=== PATIENT | male | born 1955 | race Caucasian/White ===

== ENCOUNTER 2017-01-19 07:03 | Inpatient (IN) | payer BC, OTHER ==
[~2017-01-19] VITALS: Ht 177.8 cm; Wt 73.0 kg
[~2017-01-19 07:03] MED LIST: AMLO10TA2 PO; ASPI81TA31 PO; GLUC1CAP30 PO; KRIL1CAP PO; LIGAPLEX PO; LISI10TA5 PO; METO-304 PO; OMEP1CAP2 PO; SIMV10TA6 PO; VITA1CAP PO
--- NOTE | 2017-01-19 11:10 | NUR ---
PREADMISSION NOTE Pt is a 61 y/o male in for ETOH dependency and withdrawal, pt is in stable condition moderately intoxicated, pt drinks 750ml of vodka daily for the past 2 years. Pt denies any seizure history. Pt is A&Ox4 and is able to sign consent, explained unit protocols and procedures pt verbalized understanding. vital signs taken BP:120/75mmHg, Pulse: 75, Temp: 98.1, O2% 96%, RR:18 and denies having any pain. Pt is full code regular diet. will continue the rest of admission process on the unit.
[2017-01-19] MEDS ORDERED: ATOR40TA PO (11:14)
[2017-01-19] MEDS ORDERED: METO100T3 PO (11:14)
[2017-01-19] MEDS ORDERED: AMLO10TA2 PO (11:14)
[2017-01-19] MEDS ORDERED: LOSA50TA21 PO (11:14)
[2017-01-19] MEDS ORDERED: APIX5TAB PO (11:14)
[2017-01-19] MEDS ORDERED: CLOP75TA33 PO (11:14)
[2017-01-19] MEDS ORDERED: OMEG1CAP40 PO (11:14)
[2017-01-19] MEDS ORDERED: LORA1TAB PO (11:14)
[2017-01-19] MEDS ORDERED: HYDROXYZINE PAMOATE 25 MG CAPSULE PO PRN (11:30)
[2017-01-19] MEDS ORDERED: ACETAMINOPHEN 325 MG TABLET PO PRN (11:30)
[2017-01-19] MEDS ORDERED: MIRALAX 17 GM POWD.PACK PO PRN (11:30)
[2017-01-19] MEDS ORDERED: ONDANSETRON 4 MG/2 ML VIAL IM PRN (11:30)
[2017-01-19] MEDS ORDERED: LORAZEPAM 2 MG/1 ML VIAL IM PRN (11:30)
[2017-01-19] MEDS ORDERED: LOPERAMIDE HCL 2 MG CAPSULE PO PRN ×2 (11:30)
[2017-01-19] MEDS ORDERED: LORAZEPAM 1 MG TABLET PO PRN ×2 (11:30)
[2017-01-19] MEDS ORDERED: MAGNESIUM HYDROXIDE 30 ML LIQUID UDC PO PRN (11:30)
[2017-01-19] MEDS ORDERED: THIAMINE HCL 200 MG/2 ML VIAL IM ONE (11:30)
[2017-01-19] MEDS ORDERED: ONDANSETRON ODT 4 MG TAB.RAPDIS SL PRN (11:30)
[2017-01-19] MEDS ORDERED: DICYCLOMINE HCL 20 MG TABLET PO PRN (11:30)
[2017-01-19 12:00] VITALS: BP 128/68
--- NOTE | 2017-01-19 12:00 | NUR ---
ADMISSION NOTE Pt is a 61 year old male, admitted on 01/19/17 at 1120 for ETOH Dependence and medically supervised withdrawals. Pts skin and body check completed, no contraband found, skin is warm dry and intact Pt presented with scar on his sternum s/p stent placement pt also has a healing surgical wound on his left side under the axillary. Pt awake, alert, oriented x 4, gait steady, pt ambulates with a cane. Pt weights 161 pounds and his height is 510. Pt denies any seizure history. Pt escorted to room 303 where the rest of assessment was completed. Pt is primary source of information, consistent, speech coherent. Pt brought home medications which have been reconciled. Pt refused PNA Vaccinations stating that he will receive it somewhere else. Pt reported having a primary care physician by the name of Dr. Yanez and a psychiatrist by the name of Dr. Srinivasan. Pt requested to be full code, Regular diet on fall and seizure precautions, Pt states that he is allergic to a certain Blood pressure medication but can not recall which one, he states that the current BP medications he is taking are all he needs. His last BM was today. Pt states that he lives in a house with his son and his dog. Pt stated that he smokes a pack of cigarettes a day. Pt denies being admitted to a hospital in the past 30 days, Pt is not a candidate for MRSA. Pts initial vital signs are BP: 120/75, Temp: 98.1, Pulse: 75 SPO2: 98% RR:18 and states that he has no pain. Pts initial CIWA was a 2. Pt reports PMH of CAD, DVT 9months ago S/P stent placement 15 months ago, HTN,and HLP. Pts longest sobriety lasted 3days which was about 6 months ago. Pt stated that he does not attend AA meetings. Pt reported no family history of abuse. Pt denies any suicidal or homicidal ideations. Substance use Hx: 1.ETOH Vodka: Pt reported first drinking when he was12 years of age, he has been drinking a fifth of vodka daily for the past 2 years, his last use was today morning he drank a fifth of vodka. Rehab history: None Pt cooperative, appears depressed, reports moderate anxiety. Educated on relaxation techniques (deep breathing) pt verbalized understanding. Pt denies SI/HI at this time, denies hallucinations. Skin warm and moist from sweat, color pink, consistent throughout the body. Eyes PERLLA, tremors noted and felt. Pt denied tingling. All extremities with full ROM. Lung sounds clear bilaterally, no cough present, pt denies SOB. Heart rate regular. Cap refill <3 sec. No edema noted. Abdomen soft, round, bowel sounds active x 4, non tender. Pt denies urinary difficulties, urine was not yet provided. Pt oriented to unit, room, equipment, shown how to use call light, provided returned demonstration. Fall precautions and seizure in place. Side rails up x2, call light within reach, bed locked in low position. MD contacted and aware of patients condition. All admitting orders have been placed, Pt will be on PRN Ativan for today. Pt is placed on a 5 day Ativan taper starting tomorrow. Pt refused his Vitamin B injection. Will continue to monitor.
[2017-01-19 12:30] LABS: BILIRUBIN,TOTAL 0.3 mg/dL (0.2-1.0); CREATININE 1.3 mg/dL (0.6-1.3); MAGNESIUM 1.7 mg/dL (1.8-2.4); POTASSIUM 3.7 mmol/L (3.5-5.1); TOTAL PROTEIN, SERUM 6.4 g/dL (6.4-8.2)
[2017-01-19 12:34] LABS: BASOPHILS % (AUTO) 0.8 % (0.0-2.0); EOSINOPHILS # (AUTO) 0.1 K/uL (0.0-0.7); EOSINOPHILS % (AUTO) 3.3 % (0.0-7.0); HEMATOCRIT 39.3 % (40-50); HEMOGLOBIN 13.4 G/DL (14.0-18.0); LYMPHOCYTES # (AUTO) 1.5 K/UL (0.8-4.8); LYMPHOCYTES % (AUTO) 36.2 % (20.5-51.5); MEAN CORPUSCULAR HEMOGLOBIN 35.7 UUG (27.0-31.0); MEAN CORPUSCULAR HGB CONC 34 g/dL (32.0-37.0); MEAN CORPUSCULAR VOLUME 104.7 FL (82.0-92.0); MONOCYTES # (AUTO) 0.4 K/UL (0.1-1.30); MONOCYTES % (AUTO) 10.4 % (0.0-11.0); NEUTROPHILS # (AUTO) 2.2 K/UL (1.8-8.9); NEUTROPHILS % (AUTO) 49.3 % (38.5-71.5); PLATELET COUNT (AUTO) 232 K/UL (150-450); RED BLOOD CELL COUNT(AUTO) 3.76 MIL/UL (4.7-6.1); WHITE BLOOD COUNT (AUTO) 4.2 K/UL (4.0-11.2)
[2017-01-19] MEDS: GABAPENTIN 300 MG CAPSULE PO SCH ×2 (14:35→21:38)
[2017-01-19 16:00] VITALS: BP 130/86
--- NOTE | 2017-01-19 16:40 | NUR ---
PRN MEDICATION Pt c/o anxiety presented with tremors, sweats and agitation upon assessment pt had a CIWA score of 16, Pt requested something for relief, per MD order pt received PRN ativan 2mg PO, all needs met will continue to monitor.
[2017-01-19] MEDS: MAG HYDROX/AL HYDROX/SIMETH 30 ML LIQUID UDC PO PRN (16:49)
--- NOTE | 2017-01-19 17:45 | NUR ---
PRN Reassessment Pt reported a decrease in anxiety was no longer agitated and verbalized " I feel much better now thank you" upon reassessment pts CIWA dropped to 10, all needs met will continue to monitor
--- NOTE | 2017-01-19 19:00 | NUR ---
End Of Shift Pt is a 61 y/o male in for ETOH dependency and withdrawal, pt is in stable condition. Pt drinks 750ml of vodka daily for the past 2 years. Pt denies any seizure history. Pt is A&Ox4 , Pt is full code regular diet, reports being allergic to a BP medication but does not remember the name. VS monitored closely q 4 hours. Withdrawal symptoms were closely monitored. Initial CIWA 2 at 1600 pts CIWA increased to 16 pt received PRN Ativan 2mg PO per MD order. Patient encouraged adequate PO fluid intake as tolerated. Patient presented with tremors and anxiety during the day. Upon reassessment pts Last CIWA was a 10. Per patient, Ativan has been helping him with his withdrawal symptoms. Pts taper begins tomorrow. Pt ate all of his meals. Patient encouraged to attend group therapies/sessions to learn new coping skills to recent relapse, patient denies SI/HI. Participated in group and therapy sessions. All needs met and attended
--- NOTE | 2017-01-19 19:05 | NUR ---
Start of shift note Received report from day shift nurse. Pt is a 61 yo male, A+Ox4, presenting to [facility] for ETOH dependence. Pt has Allergies to Lobster and an "unknown blood pressure medication", is on Full code status, and on Regular diet. Pt is on Fall and Seizure precautions. Pt has HX of CAD, DVT, S/P stent replacement, Hyperlipidemia, and HTN. Pt is on 5 day Ativan taper to start tomorrow. No s/s of distress noted at this time. Respirations even and unlabored. Will continue to monitor.
[2017-01-19 20:12] VITALS: BP 171/92
[2017-01-19] MEDS ORDERED: APIXABAN 5 MG TABLET PO SCH (20:45)
[2017-01-19 21:06] LABS: *AMPHETAMINE, URINE NEGATIVE (NEGATIVE); *BARBITURATE, URINE NEGATIVE (NEGATIVE); *CANNABINOID, URINE NEGATIVE (NEGATIVE); *COCCAINE, URINE NEGATIVE (NEGATIVE); *OPIATE, URINE NEGATIVE (NEGATIVE); *PHENCYCLIDINE SCREEN,URINE NEGATIVE (NEGATIVE)
[2017-01-19] MEDS: AMLODIPINE 10 MG TABLET PO SCH (21:38)
[2017-01-19] MEDS: LISINOPRIL 10 MG TABLET PO SCH (21:38)
[2017-01-19] MEDS: APIXABAN 5 MG PO SCH (22:27)
[2017-01-19] MEDS: diphenhydrAMINE 50 MG CAPSULE PO PRN (22:32)
--- NOTE | 2017-01-19 22:32 | NUR ---
PRN Ativan 1mg and Benadryl Pt c/o inability to sleep and noted with CIWA: 6. PRN Ativan 1 mg and Benadryl given and tolerated well. Will reassess within 1HR. Will continue to monitor.
--- NOTE | 2017-01-19 23:30 | NUR ---
PRN Ativan 1mg and Benadryl Medications effective. Pt is resting well in bed. No s/s of ASE/distress noted at this time. Respirations even and unlabored. Will continue to monitor. Reassessment Addendum: 01/20/17 at 0449 by COLE GARCIA LVN PRN Ativan 1mg Benadryl Reassessment
[2017-01-20 00:12] VITALS: BP 146/75
[2017-01-20 04:54] VITALS: BP 170/94
[2017-01-20] MEDS: CLONIDINE HCL 0.1 MG TABLET PO PRN (04:59)
--- NOTE | 2017-01-20 05:02 | NUR ---
PRN Clonidine Pt noted with b/p 170/94. PRN Clonidine given and tolerated well. Will reassess within 1 HR. Will continue to monitor.
--- NOTE | 2017-01-20 06:00 | NUR ---
PRN Clonidine Reassessment Medication effective. Pt noted with b/p 145/91. No s/s of ASE/distress noted at this time. Respirations even and unlabored. Will continue to monitor.
--- NOTE | 2017-01-20 06:36 | NUR ---
End of shift note Pt is a 61 yo male, A+Ox4, presenting to [facility] for ETOH dependence. Pt has Allergies to Lobster and an "unknown blood pressure medication", is on Full code status, and on Regular diet. Pt is on Fall and Seizure precautions. Pt has HX of CAD, DVT, S/P stent replacement, Hyperlipidemia, and HTN. Pt is on 5 day Ativan taper to start today. Pt was given PRN Ativan 1mg and Benadryl @2232 and PRN Clonidine @0502. Pt slept for a total of 7 HRS. Last CIWA: 4 @0400. No s/s of distress noted at this time. Respirations even and unlabored. Will endorse to day shift nurse.
--- NOTE | 2017-01-20 08:01 | NUR ---
BEGINNING OF SHIFT Patient endorsement report received from rn shift mgr nurse, all pertinent information discussed. patient is a 61 year old male admitted on: 01/19/2017, patient with admitting Dx: etoh dependence. Patient Scheduled to begin a 5 day ativan taper as ordered, and is scheduled to begin day 1 of taper, will monitor closely. During rn shift mgr patient received PRN: Ativan, and benadryl. last ciwa score of: 4. patient slept for 7 hours. Received patient in room. Alert and oriented x 4. On fall and seizure precautions. Educated patient on the current plan of care for the day and medication regimen. Safety measures in place. call light kept with in reach, will continue to monitor closely.
[2017-01-20 08:17] VITALS: BP 154/90
[2017-01-20 08:20] LABS: HEPATITIS B SURFACE AG Negative (Negative)
[2017-01-20] MEDS ORDERED: 5 DAY TAPER OF LORAZEPAM -SERENITY PROTOCOL PO PRN (09:00)
[2017-01-20] MEDS ORDERED: TUBERCULIN,PURIF.PROT.DERIV. 5 TU/0.1 ML TEST ID ONE (09:00)
[2017-01-20] MEDS: APIXABAN 5 MG PO SCH ×2 (09:28→17:04)
[2017-01-20] MEDS: METOPROLOL TARTRATE 100 MG TABLET PO SCH ×2 (09:28→17:08)
[2017-01-20] MEDS: LORAZEPAM 1 MG TABLET PO SCH ×4 (09:29→20:35)
[2017-01-20] MEDS: FOLIC ACID 1 MG TABLET PO SCH (09:29)
[2017-01-20] MEDS: MULTIVITAMINS,THERAPEUTIC TABLET PO SCH (09:29)
[2017-01-20] MEDS: GABAPENTIN 300 MG CAPSULE PO SCH ×3 (09:29→20:35)
[2017-01-20] MEDS: DOCUSATE SODIUM 250 MG CAPSULE PO SCH (09:30)
[2017-01-20] MEDS: THIAMINE HCL 100 MG TABLET PO SCH (09:30)
[2017-01-20] MEDS: AMLODIPINE 10 MG TABLET PO SCH (09:30)
[2017-01-20] MEDS: LISINOPRIL 10 MG TABLET PO SCH (09:30)
[2017-01-20] MEDS: CLOPIDOGREL 75 MG TABLET PO SCH (10:14)
[2017-01-20 12:24] VITALS: BP 132/79
[2017-01-20] MEDS ORDERED: MAGNESIUM OXIDE 400 MG TABLET PO ONE (13:00)
[2017-01-20] MEDS: IBUPROFEN 400 MG TABLET PO PRN (13:59)
--- NOTE | 2017-01-20 13:59 | NUR ---
PRN MOTRIN Patient c/o pain 07/26, provided patient with non pharmacological interventions with no relief, administered Motrin as ordered, will monitor effectiveness of medication.
--- NOTE | 2017-01-20 14:59 | NUR ---
MOTRIN REASSESSMENT Patient reports medication effective, current pain level is 0/10, will continue to monitor.
[2017-01-20 17:00] VITALS: BP 131/72
[2017-01-20] MEDS: ATORVASTATIN 40 MG TABLET PO SCH (17:05)
--- NOTE | 2017-01-20 18:55 | NUR ---
END OF SHIFT Patient alert and oriented x4, compliant with therapeutic plan of care. Patient with admitting Dx: etoh dependence. Patient continues on 5 day Ativan taper as ordered, well tolerated, patient currently on day 1 of taper, well tolerated, no ASE noted. 0900 assessment patient presented with: tremors that can be felt but not seen, barely sweating, moderate anxiety, mild pins and needles sensation in hands, and mild head fullness with ciwa score of: 10; 1300 assessment patient presented with: tremors that can be felt but not seen, barely sweating, moderate anxiety, mild pins and needles sensation in hands, with ciwa score of: 8; 1700 patient presented with: tremors that can be felt but not seen, barely sweating, moderate anxiety, mild pins and needles sensation in hands, with ciwa score of: 8. Patient encouraged adequate PO fluid intake as tolerated. Encouraged to attend group therapies/sessions to learn new coping skills to prevent relapse, preferred to stay in room, per patient would like to rest, denies any SI/HI. Patient Patients Respirations even and unlabored. No SOB noted, lungs are clear upon auscultation. Skin warm and dry to touch. Abdomen soft and non-distended with (+) BS in all 4 quadrants. No complains of N/V/D or constipation noted. Bladder non-distended. Voids independently. Safety measures in place. Call light kept with in reach. All needs met and rendered. Patient endorsed to criminal justice social worker nurse, all pertinent information discussed.
[2017-01-20 20:00] VITALS: BP 138/93
--- NOTE | 2017-01-20 20:00 | NUR ---
End of Shift Pt is a 61 year old male admitted for ETOH dependence, placed on 5 day Ativan taper. Pt reports consuming 5th of Vodka/daily. PMH: CAD, DVT, S/P Stent placement 15 months ago, HTN and HLP. Pt reports allergies to lobster and a BP medication he cannot recall as stated by him. Fall/seizure precautions (no hx of seizures), regular diet and full code. Upon assessment, pt presents with irritation/anxiety, reports feeling chills, hot/cold, skin clammy/flushed, tremors felt upon touch, respirations even/unlabored, denies SOB/chest pain, denies n/v/d, medications due. Safety measures in place, call light within reach, side rails up x2, bed locked and in low position. Will continue to monitor. Addendum: 01/20/17 at 2302 by MARÍA ELENA DALTON RN START OF SHIFT
[2017-01-21] VITALS: BP 137/89
--- NOTE | 2017-01-21 | NUR ---
ARSENI[place]A deferred d/t pt sleeping, to assess while pt is awake as ordered. BP 137/89, pulse 74, resp 18, SpO2 96% room air, temp 97.9, no pain 0/[address], will continue to monitor.
[2017-01-21 04:00] VITALS: BP 142/75
--- NOTE | 2017-01-21 04:00 | NUR ---
ARSENI[place]A deferred d/t pt sleeping, to assess while pt is awake as ordered. BP 142/75, pulse 69, resp 17, SpO2 96% room air, temp 98.1, no pain 0/[address], will continue to monitor.
[2017-01-21] MEDS: IBUPROFEN 400 MG TABLET PO PRN (06:44)
--- NOTE | 2017-01-21 06:44 | NUR ---
Pt reports headache, rate 5/10. Motrin 400mg PRN administered. will endorsed onto day shift nurse to monitor effectiveness.
--- NOTE | 2017-01-21 07:00 | NUR ---
End of Shift Pt is a 61 year old male admitted for ETOH dependence, placed on 5 day Ativan taper. Pt reports consuming 5th of Vodka/daily. PMH: CAD, DVT, S/P Stent placement 15 months ago, HTN and HLP. Pt reports allergies to lobster and a BP medication he cannot recall as stated by him. Fall/seizure precautions (no hx of seizures), regular diet and full code. During shift, pt presented with irritation/anxiety, reports feeling chills, hot/cold, skin clammy/flushed, tremors felt upon touch scheduled taper medications administered, CIWA 9. Motrin 400mg PRN administered. Pt slept for 11 hours, intake of 200 ml PO, voids x1 and stool x0. Safety measures in place, call light within reach, side rails up x2, bed locked and in low position. Endorsed to day shift nurse.
--- NOTE | 2017-01-21 07:35 | NUR ---
BEGINNING OF SHIFT Patient endorsement report received from overnight houseperson nurse, all pertinent information discussed. patient is a 61 year old male admitted on: 01/19/2017, patient with admitting Dx: etoh dependence. Patient continues on 5 day ativan taper as ordered, and is scheduled to begin day 2 of taper, will monitor closely. During overnight houseperson patient received PRN: Motrin. last ciwa score of: 9. patient slept for 11hours. Received patient in room. Alert and oriented x 4. On fall and seizure precautions. Educated patient on the current plan of care for the day and medication regimen. Safety measures in place. call light kept with in reach, will continue to monitor closely.
[2017-01-21 07:42] LABS: CREATININE 1.4 mg/dL (0.6-1.3); MAGNESIUM 1.9 mg/dL (1.8-2.4); POTASSIUM 4.5 mmol/L (3.5-5.1)
[2017-01-21 08:52] VITALS: BP 158/98
[2017-01-21] MEDS: APIXABAN 5 MG PO SCH ×2 (08:54→17:17)
[2017-01-21] MEDS: AMLODIPINE 10 MG TABLET PO SCH (08:54)
[2017-01-21] MEDS: METOPROLOL TARTRATE 100 MG TABLET PO SCH ×2 (08:55→17:16)
[2017-01-21] MEDS: THIAMINE HCL 100 MG TABLET PO SCH (08:55)
[2017-01-21] MEDS: CLOPIDOGREL 75 MG TABLET PO SCH (08:55)
[2017-01-21] MEDS: LISINOPRIL 10 MG TABLET PO SCH (08:56)
[2017-01-21] MEDS: LORAZEPAM 1 MG TABLET PO SCH ×3 (08:56→20:26)
[2017-01-21] MEDS: FOLIC ACID 1 MG TABLET PO SCH (08:56)
[2017-01-21] MEDS: DOCUSATE SODIUM 250 MG CAPSULE PO SCH (08:56)
[2017-01-21] MEDS: MULTIVITAMINS,THERAPEUTIC TABLET PO SCH (08:56)
[2017-01-21] MEDS: GABAPENTIN 300 MG CAPSULE PO SCH ×3 (08:56→20:26)
[2017-01-21] MEDS: CLONIDINE HCL 0.1 MG TABLET PO PRN (11:13)
--- NOTE | 2017-01-21 11:13 | NUR ---
PRN VISTARIL/CLONIDINE Patient c/o feeling increase in anxiety and agitation, per patient verbalized "i feel like i am being to get angry, last time i was angry i was punching things and i was tied down" patient encouraged to express feelings. Provided patient with non pharmacological interventions and calming reassurance with no relief. Patient was administered Vistaril and clonidine as ordered, bp: 150/96 hr: 77. will monitor effectiveness of medication.
--- NOTE | 2017-01-21 12:13 | NUR ---
VISTARIL/CLONIDINE REASSESSMENT Patient reports medication effective, feels less anxious and less agitated. bp: 152/89 heart rate: 68, patient encouraged to attend group therapies/sessions to learn new coping skills to prevent relapse. will continue to monitor.
[2017-01-21 13:07] VITALS: BP 152/89
[2017-01-21] MEDS ORDERED: LORAZEPAM 1 MG TABLET PO PRN ×2 (13:30)
[2017-01-21 17:07] VITALS: BP 151/87
[2017-01-21] MEDS: ATORVASTATIN 40 MG TABLET PO SCH (17:17)
--- NOTE | 2017-01-21 17:37 | NUR ---
MD COMMUNICATION Patient was noted ambulating and noted with unsteady gait, patient at high risk for fall and self injury d/t unsteady gait. notified with MD patient to be placed on 1: 1 sitter for safety precautions, will continue to monitor.
--- NOTE | 2017-01-21 18:07 | NUR ---
Therapist prompted client to attend group today, client agreed to attend.
--- NOTE | 2017-01-21 19:00 | NUR ---
END OF SHIFT Patient alert and oriented x4, compliant with therapeutic plan of care. Patient with admitting Dx: etoh dependence. Patient continues on 5 day Ativan taper as ordered, well tolerated, patient currently on day 2 of taper, well tolerated, no ASE noted. 0900 assessment patient presented with: fine tremors, barely sweating, moderate anxiety, mild auditory and visual hallucinations with ciwa score of: 12, per patient reports seeing and speaking with brother early in the morning. 1300 assessment patient presented with: fine tremors, barely sweating, and anxiety with ciwa score of: 6; 1700 assessment patient presented with: fine tremors, barely sweating and anxiety with ciwa score of: 6. During shift patient was placed on a 1: 1 sitter for safety precautions, patient noted with unsteady gait. Patient currently denies any auditory and visual hallucinations, but patient reported that in the past he hears and sees his brother, patient was seen by psychiatrist during shift. Patient encouraged adequate PO fluid intake as tolerated. Encouraged to attend group therapies/sessions to learn new coping skills to prevent relapse, denies any SI/HI. Patient received PRN: Vistaril and clonidine during shift. Patient Patients Respirations even and unlabored. No SOB noted, lungs are clear upon auscultation. Skin warm and dry to touch. Abdomen soft and non-distended with (+) BS in all 4 quadrants. No complains of N/V/D or constipation noted. Bladder non-distended. Voids independently. Safety measures in place. Call light kept with in reach. All needs met and rendered. Patient endorsed to rn night nurse, all pertinent information discussed.
[2017-01-21 20:00] VITALS: BP 139/94
--- NOTE | 2017-01-21 20:00 | NUR ---
Start of Shift Pt is a 61 year old male admitted for ETOH dependence, placed on 5 day Ativan taper. Pt reports consuming 5th of Vodka/daily. PMH: CAD, DVT, S/P Stent placement 15 months ago, HTN and HLP. Pt reports allergies to lobster and a BP medication he cannot recall as stated by him. Fall/seizure precautions (no hx of seizures), regular diet and full code. Upon assessment, pt presents with anxiety, reports hot/cold, skin clammy/flushed, tremors felt upon touch, reports pins/needles sensations, respirations even/unlabored, denies SOB/chest pain, denies n/v/d, medications due. Pt is a on a 1:1 for safety. Pt denies visual/auditory hallucinations at time of assessment. Safety measures in place, call light within reach, side rails up x2, bed locked and in low position. Will continue to monitor.
[2017-01-22] VITALS: BP 139/80
--- NOTE | 2017-01-22 | NUR ---
ARSENIOWA deferred d/t pt sleeping, to assess while pt is awake as ordered. BP 139/80, pulse 79, resp 17, Spo2 96% room air, temp 98.[address], will continue to monitor.
[2017-01-22 04:00] VITALS: BP 142/90
--- NOTE | 2017-01-22 04:00 | NUR ---
CIWA deferred d/t pt sleeping, to assess while pt is awake as ordered. BP 140/90, pulse 80, resp 16, Spo2 96% room air, temp 98.[address], will continue to monitor.
[2017-01-22] MEDS: IBUPROFEN 400 MG TABLET PO PRN ×2 (05:41→18:09)
--- NOTE | 2017-01-22 05:41 | NUR ---
PRN Administration Pt reports, "I hear my brothers voice. He's just talking to me. Earlier I saw a dog". Pt also reports a headache, rated 4/10. Motrin 400mg PRN and Seroquel 25mg PRN administered for hallucinations as ordered. Safety measures in place, will continue to monitor.
[2017-01-22] MEDS: QUETIAPINE FUMARATE 25 MG TABLET PO PRN ×2 (05:52→20:55)
--- NOTE | 2017-01-22 06:41 | NUR ---
PRN Reassessment At time of reassessment pt denies auditory/visual hallucinations. Denies headache. Sitter at bed side, safety measures in place, will continue to monitor.
--- NOTE | 2017-01-22 07:00 | NUR ---
End of Shift Pt is a 61 year old male admitted for ETOH dependence, placed on 5 day Ativan taper. Pt reports consuming 5th of Vodka/daily. PMH: CAD, DVT, S/P Stent placement 15 months ago, HTN and HLP. Pt reports allergies to lobster and a BP medication he cannot recall as stated by him. Fall/seizure precautions (no hx of seizures), regular diet and full code. During shift, pt presented with anxiety, reported hot/cold, skin clammy/flushed, tremors felt upon touch, reported pins/needles sensations scheduled taper medications administered, CIWA 10. Motrin 400mg PRN given for ROBLEDO. Pt verbalized hallucinations during shift and stated that he heard his brothers voice and saw a dog - Seroquel 25mg PRN administered for hallucinations as ordered. Pt is a on a 1:1 for safety. Pt denied visual/auditory hallucinations during shift. Pt slept for 8 hours, intake of 500 ml PO, voids x2 and stool x0. Safety measures in place, call light within reach, side rails up x2, bed locked and in low position. Endorsed to day shift nurse.
--- NOTE | 2017-01-22 07:00 | NUR ---
Start of Shift Report from the night nurse: Pt is a 61 y/o male, ambulatory with cane and here for Etoh dependence r/t 750mL Vodka daily for 2 years; 5 day Ativan taper ordered. Pt is a full code, Regular diet, unknown allergy rxn to anti-HTN medications and allergic to lobster. Hhx: DVT, HTN, HLD, CAD & Surgical Sent placement 2014 with core measures carried out as ordered. No SCD ordered with Eliquis given as ordered. No Hx of sz or fall. Seizure and fall precautions ordered. Pt has sitter with 1:1 order r/t disorientation and hallucinations with additional orders for Seroquel 25mg PRN given last night. V/S stable and no PRN BP medication given. No abnormal labs or new orders endorsed to me. Pt is asleep in room. Will cont. to monitor the pt. Addendum: 01/22/17 at 1914 by MO OBREGON RN Last ARSENIOOK 10
[2017-01-22 08:00] VITALS: BP 162/94
[2017-01-22] MEDS: APIXABAN 5 MG PO SCH ×2 (09:55→16:52)
[2017-01-22] MEDS: LORAZEPAM 1 MG TABLET PO SCH ×4 (09:56→20:48)
[2017-01-22] MEDS: MULTIVITAMINS,THERAPEUTIC TABLET PO SCH (09:56)
[2017-01-22] MEDS: LISINOPRIL 10 MG TABLET PO SCH (09:56)
[2017-01-22] MEDS: GABAPENTIN 300 MG CAPSULE PO SCH ×3 (09:56→20:49)
[2017-01-22] MEDS: AMLODIPINE 10 MG TABLET PO SCH (09:56)
[2017-01-22] MEDS: FOLIC ACID 1 MG TABLET PO SCH (09:56)
[2017-01-22] MEDS: THIAMINE HCL 100 MG TABLET PO SCH (09:56)
[2017-01-22 12:00] VITALS: BP 152/82
[2017-01-22] MEDS: CLOPIDOGREL 75 MG TABLET PO SCH (12:20)
[2017-01-22] MEDS: METOPROLOL TARTRATE 100 MG TABLET PO SCH ×2 (12:24→16:52)
[2017-01-22] MEDS ORDERED: hydrALAZINE HCL 25 MG TABLET PO SCH (13:15)
[2017-01-22] MEDS: LOSARTAN POTASSIUM 50 MG TABLET PO SCH ×2 (14:54→16:51)
[2017-01-22 16:00] VITALS: BP 172/93
[2017-01-22] MEDS: ATORVASTATIN 40 MG TABLET PO SCH (16:51)
--- NOTE | 2017-01-22 17:00 | NUR ---
PRN Medication Administration & Elevated BP Pt is resting in bed with HOB 45 degrees, BP 172/93 HR 93 SpO2 93% RA & pt c/o ROBLEDO 4/10 pain; Scheduled Losartan, Lopressor, Eliquis, Lipitor and Ativan given as ordered with PRN Tylenol 650mg. Will reassess BP and ROBLEDO in 1 hour after pt returns from dinner.
--- NOTE | 2017-01-22 18:05 | NUR ---
Reassessment & PRN Medication Administration Pt is in room resting in bed after dinner with HOB 45 degrees. BP has decreased from 172/93 to 164/94, HR is again stable at 76 & ROBLEDO is not relieved with pain 05/26; Tylenol is not effective PRN hydralazine 25mg tab PO and Motrin 400mg PO given as ordered. Will endorse to the night nurse to reassess in 1H.
[2017-01-22] MEDS: hydrALAZINE HCL 25 MG TABLET PO PRN (18:09)
--- NOTE | 2017-01-22 18:29 | NUR ---
End of Shift Report from the night nurse: Pt is a 61 y/o male, ambulatory with cane and here for Etoh dependence r/t 750mL Vodka daily for 2 years; 5 day Ativan taper ordered. Pt is a full code, Regular diet, unknown allergy rxn to anti-HTN medications and allergic to lobster. Hhx: DVT, HTN, HLD, CAD & Surgical Sent placement 2014 with core measures carried out as ordered. No SCD ordered with Eliquis given as ordered. No Hx of sz or fall. Seizure and fall precautions ordered. Pt has sitter with 1:1 order r/t unsteady gait. New order for Losartan BID and PRN hydralazine with parameters with one dose given as ordered since 1700 SBP elevated 172 and decreased after second dose of losartan and Lopressor given as scheduled but was not effective after one hour [place] [address]. PRN Tylenol 650mg given at 1700 since pt c/o ROBLEDO with elevated BP and was ineffective after 1H so the PRN Motrin 400mg given at 1805pm. New order for BMP tomorrow. Pt denies chest pain and no N/V noted during my shift. Pt voided x 4 effectively with 2.4L fluid intake & BM x1 during my shift. Last CIWA 6. Addendum: 01/22/17 at 1915 by MO OBREGON RN Pt attended group therapy and activities during my shift.
[2017-01-22 20:00] VITALS: BP 144/83
--- NOTE | 2017-01-22 20:00 | NUR ---
Start of Shift Pt is a 61 year old male admitted for ETOH dependence, placed on 5 day Ativan taper. Pt reports consuming 5th of Vodka/daily. PMH: CAD, DVT, S/P Stent placement 15 months ago, HTN and HLP. Pt reports allergies to lobster and a BP medication he cannot recall as stated by him. Fall/seizure precautions (no hx of seizures), regular diet and full code. Upon assessment, pt presents with anxiety, skin is flushed, reports chills with hot/cold sensations, respirations even/unlabored, denies SOB/chest pain, denies n/v/d, medications due. Pt is a on a 1:1 for safety. Safety measures in place, call light within reach, side rails up x2, bed locked and in low position. Will continue to monitor.
--- NOTE | 2017-01-22 20:55 | NUR ---
PRN Administration Pt verbalizes auditory hallucinations. Pt states, I hear my mom and sister talking to each other, but not with me. Seroquel 25mg PRN administered. Safety measures in place, will continue to monitor.
--- NOTE | 2017-01-22 21:55 | NUR ---
PRN Reassessment Upon reassessment, pt is sleeping, respirations even/unlabored. Sitter at bedside, safety measures in place, will continue to monitor.
[2017-01-23] VITALS (8 sets, daily range): BP systolic 141–166; BP diastolic 74–90
[2017-01-23] MEDS: hydrALAZINE HCL 25 MG TABLET PO PRN (04:30)
--- NOTE | 2017-01-23 04:30 | NUR ---
PRN Administration BP 166/90, pulse 78, resp 16, SpO2 95% room air, temp 98.1 Hydralazine 25mg PRN administered. Safety measures in place, will continue to monitor.
--- NOTE | 2017-01-23 05:30 | NUR ---
PRN Reassessment/Administration Upon reassessment, BP 162/88, pulse 64. Clonidine 0.1mg PRN administered. Safety measures in place, will continue to monitor.
[2017-01-23] MEDS: CLONIDINE HCL 0.1 MG TABLET PO PRN (05:41)
--- NOTE | 2017-01-23 06:30 | NUR ---
PRN Reassessment Medication effective. BP 142/74 & pulse 59 Pt resting in bed, safety measures in place, will continue to monitor.
--- NOTE | 2017-01-23 07:07 | NUR ---
End of Shift Pt is a 61 year old male admitted for ETOH dependence, placed on 5 day Ativan taper. Pt reports consuming 5th of Vodka/daily. PMH: CAD, DVT, S/P Stent placement 15 months ago, HTN and HLP. Pt reports allergies to lobster and a BP medication he cannot recall as stated by him. Fall/seizure precautions (no hx of seizures), regular diet and full code. During shift, pt presented with anxiety, skin is flushed, reports chills with hot/cold sensations scheduled taper medications administered, CIWA 5. During shift, Pt verbalized auditory hallucinations. Pt stated, I hear my mom and sister talking to each other, but not with me. Seroquel 25mg PRN administered. Hydralazine 25mg PRN and Clonidine 0.1mg PRN administered for elevated BP. Latest BP 142/74 & pulse 59. Pt slept for 8 hours, intake of 1000 ml PO, voids x4, and stool x0. Pt continues on a 1:1 for safety. Safety measures in place, call light within reach, side rails up x2, bed locked and in low position. Endorsed to day shift nurse.
[2017-01-23 07:42] LABS: CREATININE 1.4 mg/dL (0.6-1.3); POTASSIUM 4.4 mmol/L (3.5-5.1)
--- NOTE | 2017-01-23 08:00 | NUR ---
received patient awake and alert in bed with 1;1 sitter in room no c/o seizure activity , oral intake qs, pt voiding qs no shakea noted and vitals wnl on 5 day ativan taper. continue to monitor for safety and falls.
[2017-01-23] MEDS: MULTIVITAMINS,THERAPEUTIC TABLET PO SCH (08:21)
[2017-01-23] MEDS: FOLIC ACID 1 MG TABLET PO SCH (08:21)
[2017-01-23] MEDS: LORAZEPAM 1 MG TABLET PO SCH ×2 (08:21→14:54)
[2017-01-23] MEDS: CLOPIDOGREL 75 MG TABLET PO SCH (08:21)
[2017-01-23] MEDS: GABAPENTIN 300 MG CAPSULE PO SCH ×4 (08:21→22:17)
[2017-01-23] MEDS: LOSARTAN POTASSIUM 50 MG TABLET PO SCH ×2 (08:22→17:21)
[2017-01-23] MEDS: THIAMINE HCL 100 MG TABLET PO SCH (08:22)
[2017-01-23] MEDS: AMLODIPINE 10 MG TABLET PO SCH (08:24)
[2017-01-23] MEDS: METOPROLOL TARTRATE 100 MG TABLET PO SCH ×2 (09:21→17:23)
[2017-01-23] MEDS: APIXABAN 5 MG PO SCH ×2 (09:25→17:23)
--- NOTE | 2017-01-23 12:12 | NUR ---
Therapist prompted client to come to group today. CLient agreed
[2017-01-23] MEDS: MAG HYDROX/AL HYDROX/SIMETH 30 ML LIQUID UDC PO PRN (13:49)
[2017-01-23] MEDS ORDERED: LORAZEPAM 1 MG TABLET PO SCH ×2 (15:00→21:00)
[2017-01-23] MEDS: ATORVASTATIN 40 MG TABLET PO SCH (17:27)
--- NOTE | 2017-01-23 17:42 | NUR ---
patient remains on 1;1 for safety ambulates with cane , no etoh withdrawls noted , oral intake qs and voiding qs b/p wnl wioth taking anti hypertension
--- NOTE | 2017-01-23 19:10 | NUR ---
Start of shift note Received report from day shift nurse. Pt is a 61 yo male, A+Ox4, presenting to [facility] for ETOH dependence. Pt has Allergies to Lobster and an "unknown blood pressure medication", is on Full code status, and on Regular diet. Pt is on Fall and Seizure precautions. Pt has HX of CAD, DVT, S/P stent replacement, Hyperlipidemia, and HTN. Pt is on 1:1 observation for unsteady gait. Pt is on 5 day Ativan taper to start tomorrow. No s/s of distress noted at this time. Respirations even and unlabored. Will continue to monitor. Addendum: 01/24/17 at 0636 by COLE GARCIA LVN Pt is on 5 day Ativan taper, tolerated well.
[2017-01-23] MEDS ORDERED: hydrALAZINE HCL 25 MG TABLET PO PRN (19:15)
[2017-01-23] MEDS ORDERED: DILTIAZEM HCL SR 60 MG CAP.SR.12H PO SCH (21:00)
[2017-01-23] MEDS: diphenhydrAMINE 50 MG CAPSULE PO PRN (22:17)
--- NOTE | 2017-01-23 22:17 | NUR ---
PRN Benadryl Pt c/o inability to sleep and requested for PRN Benadryl. Medication given and tolerated well. Will reassess within 1 HR. Will continue to monitor.
--- NOTE | 2017-01-23 23:15 | NUR ---
PRN Benadryl Reassessment Medication effective. Pt is resting well in bed. No s/s of ASE/distress noted at this time. Respirations even and unlabored. Will continue to monitor.
[2017-01-24 00:08] VITALS: BP 131/82
[2017-01-24 04:50] VITALS: BP 138/88
--- NOTE | 2017-01-24 06:52 | NUR ---
End of shift note Pt is a 61 yo male, A+Ox4, presenting to [facility] for ETOH dependence. Pt has Allergies to Lobster and an "unknown blood pressure medication", is on Full code status, and on Regular diet. Pt is on Fall and Seizure precautions. Pt has HX of CAD, DVT, S/P stent replacement, Hyperlipidemia, and HTN. Pt is on 1:1 observation for unsteady gait. Pt is on 5 day Ativan taper, tolerated well. Pt was given PRN Benadryl @2217. Pt slept for a total of 8 HRS. Last CIWA: 2 @0400. No s/s of distress noted at this time. Respirations even and unlabored. Will endorse to day shift nurse.
--- NOTE | 2017-01-24 07:35 | NUR ---
START OF SHIFT Received report from human services case manager nurse. Pt is lying in bed watching TV. 1:[address] for safety r/t unsteady gait. He is a 61 yo male admitted to [facility] on 01/19 for ETOH dependence. He is A&O x4 and ambulatory with a cane r/t right leg weakness. Allergic to lobster, full code status, and on a regular diet. PMH of HTN, CAD, DVT of right leg, and s/p stent placement. On admission he reported using vodka 1/5th gallon per day. 5 day Ativan taper started 01/20. He reports anxiety and left leg weakness. Fall and seizure precautions in place. Bed is down with call light in reach. Addendum: 01/24/17 at 0933 by NILESH ENRIQUE RN Correction: Pt ambulates with a cane r/t left leg weakness. Addendum: 01/24/17 at 1215 by NILESH ENRIQUE RN Pt is on a 2G sodium diet. Addendum: 01/24/17 at 1658 by NILESH ENRIQUE RN Correction: DVT is of left leg.
[2017-01-24 08:00] VITALS: BP 125/75
[2017-01-24] MEDS: LORAZEPAM 1 MG TABLET PO SCH ×3 (08:36→22:10)
[2017-01-24] MEDS: LOSARTAN POTASSIUM 50 MG TABLET PO SCH ×2 (08:37→17:33)
[2017-01-24] MEDS: FOLIC ACID 1 MG TABLET PO SCH (08:37)
[2017-01-24] MEDS: METOPROLOL TARTRATE 100 MG TABLET PO SCH ×2 (08:37→17:33)
[2017-01-24] MEDS: APIXABAN 5 MG PO SCH ×2 (08:38→17:33)
[2017-01-24] MEDS: GABAPENTIN 300 MG CAPSULE PO SCH ×3 (08:38→22:11)
[2017-01-24] MEDS: AMLODIPINE 10 MG TABLET PO SCH (08:39)
[2017-01-24] MEDS: CLOPIDOGREL 75 MG TABLET PO SCH (08:39)
[2017-01-24] MEDS: THIAMINE HCL 100 MG TABLET PO SCH (08:39)
[2017-01-24] MEDS: MULTIVITAMINS,THERAPEUTIC TABLET PO SCH (08:39)
[2017-01-24] MEDS ORDERED: DILTIAZEM HCL CD 120 MG CAP.SR.24H PO SCH (09:00)
[2017-01-24] MEDS ORDERED: LORAZEPAM 1 MG TABLET PO SCH (09:00)
[2017-01-24 12:00] VITALS: BP 123/70
[2017-01-24] MEDS: IBUPROFEN 400 MG TABLET PO PRN (14:35)
--- NOTE | 2017-01-24 14:36 | NUR ---
PRN Motrin Pt reports left leg pain 5/10. PRN Motrin administered.
--- NOTE | 2017-01-24 15:36 | NUR ---
PRN Motrin reassessment PRN Motrin somewhat effective. Left leg pain reduced to 3/10.
[2017-01-24 16:30] VITALS: BP 106/64
[2017-01-24] MEDS: ATORVASTATIN 40 MG TABLET PO SCH (17:34)
--- NOTE | 2017-01-24 19:02 | NUR ---
END OF SHIFT Report provided to table games shift manager nurse. Pt is lying in bed watching TV. 1:[address] for safety r/t unsteady gait. Pt is a 61 yo male admitted to [facility] on 01/19 for ETOH dependence. He is A&O x4 and ambulatory with a cane r/t right leg weakness. Allergic to lobster, full code status, and on a 2G sodium diet. PMH of HTN, CAD, DVT since 08/02 of left leg, and s/p stent placement. No redness, warmth, or swelling of leg leg noted. On admission he reported using vodka 1/5th gallon per day. 5 day Ativan taper started 01/20. He is compliant with treatment and attended group. PRN Motrin administered for leg pain. No redness, warmth, or swelling noted. Last CIWA 4. He drank 2800mL. Fall and seizure precautions in place. Bed is down with call light in reach.
--- NOTE | 2017-01-24 19:05 | NUR ---
END OF SHIT Report provided to night warehouse manager nurse. Pt is lying in bed resting. He is a 24 yo male admitted to [facility] on 01/23 for BZD and suboxone dependence. He is A&O and ambulatory with a steady gait. 1:1 DISINTEGRATOR removed. NKA, full code status, and on a regular diet. PMH of neuropathy, seizures r/t drug withdrawal, neuropathy, anxiety, mood disorder, asthma, and ADHD. On admission he reported using clonazolam 5mg per day, suboxone 16mg per day, ambien 20mg per day, phenibut unspecified amount, and valium 10mg per day. 6 day Phenobarbital and 6 day Subutex started today. Pt provided urine for UDS and voided freely. PRN Valium, Zofran IM, Zofran PO, Motrin x2, Robaxin, and Tylenol administered. Last COWS 7 and CIWA 4. He drank 1500mL. Fall and seizure precautions in place. Bed is down with call light in reach. Addendum: 01/24/17 at 1906 by NILESH ENRIQUE RN Disregard note. Incorrect pt.
--- NOTE | 2017-01-24 19:10 | NUR ---
Start of shift note Received report from day shift nurse. Pt is a 61 yo male, A+Ox4, presenting to [facility] for ETOH dependence. Pt has Allergies to Lobster and an "unknown blood pressure medication", is on Full code status, and on Regular diet. Pt is on Fall and Seizure precautions. Pt has HX of CAD, DVT, S/P stent replacement, Hyperlipidemia, and HTN. Pt is on 1:1 observation for unsteady gait. Pt is on 5 day Ativan taper, tolerated well. No s/s of distress noted at this time. Respirations even and unlabored. Will continue to monitor.
[2017-01-24 20:45] VITALS: BP 127/77
[2017-01-24] MEDS: DILTIAZEM HCL SR 60 MG CAP.SR.12H PO SCH (22:11)
[2017-01-24] MEDS: diphenhydrAMINE 50 MG CAPSULE PO PRN (22:11)
--- NOTE | 2017-01-24 22:11 | NUR ---
PRN Benadryl Pt c/o inability to sleep and requested for PRN Benadryl. Medication given and tolerated well. Will reassess within 1 HR. Will continue to monitor.
[2017-01-25 00:12] VITALS: BP 128/79
[2017-01-25 04:12] VITALS: BP 133/82
--- NOTE | 2017-01-25 06:51 | NUR ---
End of shift note Pt is a 61 yo male, A+Ox4, presenting to [facility] for ETOH dependence. Pt has Allergies to Lobster and an "unknown blood pressure medication", is on Full code status, and on Regular diet. Pt is on Fall and Seizure precautions. Pt has HX of CAD, DVT, S/P stent replacement, Hyperlipidemia, and HTN. Pt is on 1:1 observation for unsteady gait. Pt is on 5 day Ativan taper, tolerated well. Pt was given PRN Benadryl @2211. Pt slept for a total of 6 HRS. Last CIWA: 3 @0400. No s/s of distress noted at this time. Respirations even and unlabored. Will endorse to day shift nurse.
--- NOTE | 2017-01-25 07:48 | NUR ---
START OF SHIFT RECEIVED PT LAYING IN BED, A/OX4. RESPIRATIONS EVEN AND UNLABORED. NO S/S OF DISTRESS AT THIS TIME. PT IS ON A 2 GM SODIUM DIET. PT IS ALLERGIC TO LOBSTER AND AND UNKNOWN BP MEDICATION. PT HAS HX OF A DVT ON R LEG, S/P STENT PLACEMENT, HTN, AND CAD. PT IS ON AN 1:1 FOR UNSTEADY GAIT. PT IS ON A 5 DAY ATIVAN. SIDE RAILS UP X2, BED IN LOWEST POSITION. CALL LIGHT WITHIN REACH. FALL AND SZ PRECAUTIONS TAKEN. ENCOURAGED PT TO INCREASE FLUIDS TO FACILITATE IN DETOX PROCESS. WILL CONTINUE TO MONITOR.
[2017-01-25 08:00] VITALS: BP 126/83
[2017-01-25] MEDS: THIAMINE HCL 100 MG TABLET PO SCH (08:24)
[2017-01-25] MEDS: MULTIVITAMINS,THERAPEUTIC TABLET PO SCH (08:24)
[2017-01-25] MEDS: FOLIC ACID 1 MG TABLET PO SCH (08:24)
[2017-01-25] MEDS: AMLODIPINE 10 MG TABLET PO SCH (08:24)
[2017-01-25] MEDS: GABAPENTIN 300 MG CAPSULE PO SCH ×3 (08:24→21:28)
[2017-01-25] MEDS: CLOPIDOGREL 75 MG TABLET PO SCH (08:25)
[2017-01-25] MEDS: LOSARTAN POTASSIUM 50 MG TABLET PO SCH ×2 (08:25→17:03)
[2017-01-25] MEDS: METOPROLOL TARTRATE 100 MG TABLET PO SCH ×2 (08:25→17:04)
[2017-01-25] MEDS: APIXABAN 5 MG PO SCH ×2 (08:25→17:05)
--- NOTE | 2017-01-25 08:53 | NUR ---
PRN PT C/O OF HEADACHE AND PT C/O OF PAIN IN THE SIDE; PT STATED, "I HAVE PAIN IN THE SIDE FROM SLEEPING." MOTRIN 600 MG PO PRN AND ROBAXIN 750 MG PO PRN WAS ADMINISTRATED. PT TOLERATED WELL. Addendum: 01/25/17 at 1019 by MIKE RIOS RN INCORRECT PATIENT
[2017-01-25] MEDS ORDERED: LORAZEPAM 1 MG TABLET PO SCH (09:00)
[2017-01-25 12:00] VITALS: BP 120/63
[2017-01-25 16:00] VITALS: BP 135/77
[2017-01-25] MEDS: MAG HYDROX/AL HYDROX/SIMETH 30 ML LIQUID UDC PO PRN (17:01)
--- NOTE | 2017-01-25 17:01 | NUR ---
PRN PT C/O OF UPSET STOMACH AND ACID INDIGESTION. MAALOX GIVEN.
--- NOTE | 2017-01-25 18:01 | NUR ---
REASSESSMENT PT STATED MEDICATION WAS EFFECTIVE UPON REASSESSMENT.
[2017-01-25] MEDS: ATORVASTATIN 40 MG TABLET PO SCH (18:08)
--- NOTE | 2017-01-25 18:57 | NUR ---
END OF SHIFT Report provided to weight shifter nurse. Pt is lying in bed watching TV. 1:[address] for safety r/t left leg weakness. Pt is a 61 yo male admitted to [facility] on 01/19 for ETOH dependence. He is A&O x4 and ambulatory with a cane r/t left leg weakness. Allergic to lobster, full code status, and on a 2G sodium diet. PMH of HTN, CAD, DVT since 08/02 of left leg, and s/p stent placement. On admission he reported using vodka 1/5th gallon per day. 5 day Ativan taper started 01/20. He is compliant with treatment and attended group. Taper complete and pt is scheduled for discharge tomorrow. Minimal s/s of withdrawal. Pt denied pain. He drank 2000mL and ate all meals. Last CIWA 1. Fall and seizure precautions in place. Bed is down with call light in reach.
[2017-01-25] MEDS ORDERED: ATOR40TA PO (19:50)
[2017-01-25] MEDS ORDERED: CLOP75TA15 PO (19:50)
[2017-01-25] MEDS ORDERED: DILT60CA3 PO (19:50)
[2017-01-25] MEDS ORDERED: LOSA50TA3 PO (19:50)
[2017-01-25] MEDS ORDERED: DIPH50CA37 PO (19:50)
[2017-01-25] MEDS ORDERED: AMLO10TA2 PO (19:50)
[2017-01-25] MEDS ORDERED: METO100T3 PO (19:50)
[2017-01-25] MEDS ORDERED: GABA-534 PO (19:50)
[2017-01-25] MEDS ORDERED: HYDR-3895 PO (19:50)
[2017-01-25 20:00] VITALS: BP 123/78
--- NOTE | 2017-01-25 20:00 | NUR ---
START OF SHIFT NOTE RECEIVED REPORT FROM DAY SHIFT NURSE. PATIENT IS A 61 YEAR OLD MALE ADMITTED FOR ETOH DEPENDENCE. PATIENT COMPLETED 5 DAY ATIVAN TAPER. PATIENT IS MEDICALLY CLEARED TO BE DISCHARGE TOMORROW. PATIENT IS ALLERGIC TO BP MED (CANT RECALL) AND LOBSTER. NO SEIZURE HISTORY. PATIENT IS 1:1 WITH PALLET STONE INSERTER DUE TO UNSTEADY GAIT. PATIENT WAS GIVEN PRN MAALOX AND LAST CIWA 2. PATIENT IN ROOM, WITH PALLET STONE INSERTER, ALERT AND ORIENTED X 4. RESPIRATION. PATIENT STATES HE'S GOOD , HE C/O 2/10, HEADACHE, BUT TOLERABLE AND STATES HE DOESN'T NEED PAIN MEDS. ON FALL/SEIZURE PRECAUTION. SAFETY MEASURES IN PLACE. CALL LIGHT IN REACH. WILL CONTINUE TO MONITOR.
[2017-01-25] MEDS: diphenhydrAMINE 50 MG CAPSULE PO PRN (21:28)
--- NOTE | 2017-01-25 21:28 | NUR ---
PRN BENADRYL RE-ASSESSMENT PATIENT REQUESTS FOR SLEEP AID. PRN BENADRYL . WILL MONITOR FOR EFFECTIVENESS
[2017-01-25] MEDS: DILTIAZEM HCL SR 60 MG CAP.SR.12H PO SCH (21:32)
--- NOTE | 2017-01-25 23:30 | NUR ---
CARLYLE RE-ASSESSMENT PATIENT ASLEEP AT THIS TIME. RESPIRATION EVEN AND UNLABORED. WILL CONTINUE TO MONITOR.
[2017-01-26] VITALS: BP 131/66
--- NOTE | 2017-01-26 | NUR ---
CIWA DEFERRED PATIENT SLEEPING. CIWA DEFERRED. RESPIRATION EVEN AND UNLABORED. SAFETY MEASURES IN PLACE. CALL LIGHT IN REACH. WILL CONTINUE TO MONITOR.
[2017-01-26 04:00] VITALS: BP 148/89
--- NOTE | 2017-01-26 04:00 | NUR ---
CIWA DEFERRED PATIENT SLEEPING. CIWA DEFERRED. RESPIRATION EVEN AND UNLABORED. SAFETY MEASURES IN PLACE. CALL LIGHT IN REACH. WILL CONTINUE TO MONITOR.
--- NOTE | 2017-01-26 07:06 | NUR ---
END OF SHIFT NOTE PATIENT CONTINUE ON SUBUTEX TAPER FOR OPIATE DEPENDENCE, TOLERATED WELL AND NO ADVERSE REACTION.CONTINUE ON TRIPLE ANTIBIOTIC OINTMENT FOR MULTIPLE SCABS ON BOTH ARMS AND FACE. PATIENT WAS GIVEN PRN ROBAXIN FOR GENERALIZED BODY ACHES. PATIENT IN THE ROOM MOST OF THE SHIFT. ON FALL PRECAUTION. SAFETY MEASURES IN PLACE. CALL LIGHT IN REACH. WILL CONTINUE TO MONITOR. SLEPT 10 HOURS. FLUID INTAKE 1,888 ML. VOIDED X 5. NO BM. LAST COWS 6. Addendum: 01/26/17 at 0715 by MANJINDER DUMONT LVN ERROR : THIS CHARTING IS FOR ANOTHER PATIENT
--- NOTE | 2017-01-26 07:17 | NUR ---
END OF SHIFT NOTE PATIENT COMPLETED 5 DAY ATIVAN TAPER. PATIENT IS MEDICALLY CLEARED TO BE DISCHARGE TODAY. PATIENT CONTINUE ON 1:1 THROUGHOUT NIGHT D/T UNSTEADY GAIT. PATIENT REMAIN FREE OF INJURY . PATIENT COMPLIANT WITH MEDICATIONS AND TREATMENT PLAN. PATIENT WAS GIVEN PRN BENADRYL FOR SLEEP. LAST CIWA 1.. ON FALL/SEIZURE PRECAUTION. SAFETY MEASURES IN PLACE. CALL LIGHT IN REACH. WILL CONTINUE TO MONITOR. SLEPT 6 HOURS. FLUID INTAKE 1,220 ML. VOIDED X 6 . NO BM.
--- NOTE | 2017-01-26 07:36 | NUR ---
START OF SHIFT Received report from shift production supervisor nurse. 1:[address] for safety r/t unsteady gait. He is a 61 yo male admitted to [facility] on 01/19 for ETOH dependence.To be discharged this AM. Pt is alert and oriented X4. Color good, skin warm and dry. Respirationds even and unlabored. Safety precautions observed. Call light within reach.
--- NOTE | 2017-01-26 08:02 | NUR ---
VSS Discharge papers and medication bag signed.
[2017-01-26] MEDS: FOLIC ACID 1 MG TABLET PO SCH (08:05)
[2017-01-26] MEDS: MULTIVITAMINS,THERAPEUTIC TABLET PO SCH (08:05)
[2017-01-26] MEDS: THIAMINE HCL 100 MG TABLET PO SCH (08:06)
[2017-01-26] MEDS: AMLODIPINE 10 MG TABLET PO SCH (08:06)
[2017-01-26] MEDS: LOSARTAN POTASSIUM 50 MG TABLET PO SCH (08:06)
[2017-01-26] MEDS: GABAPENTIN 300 MG CAPSULE PO SCH (08:06)
[2017-01-26] MEDS: CLOPIDOGREL 75 MG TABLET PO SCH (08:07)
[2017-01-26] MEDS: APIXABAN 5 MG PO SCH (08:07)
[2017-01-26 08:08] VITALS: BP 127/74
[2017-01-26] MEDS: METOPROLOL TARTRATE 100 MG TABLET PO SCH (08:08)
--- NOTE | 2017-01-26 09:30 | NUR ---
Pt left in stable condition with all valuables, belongings and medications. Denies SI/HI. To [facility] via [facility] private car.
== END 2017-01-26 09:30 | disposition home or self-care (01) | DRG 895 ==
LOC: SRC 10:59
PROVIDERS: ADMIT Internal Medicine; ATTEND Internal Medicine
PROC: HZ2ZZZZ Detoxification Services for Substance Abuse Treatment (ICD-10-PCS; principal; 2017-01-19)
PROC: HZ41ZZZ Group Counseling for Substance Abuse Treatment, Behavioral (ICD-10-PCS; 2017-01-20)
PROC: HZ31ZZZ Individual Counseling for Substance Abuse Treatment, Behavioral (ICD-10-PCS; 2017-01-21)
DX: F10.232 Alcohol dependence with withdrawal with perceptual disturbance (principal); D68.69 Other thrombophilia; K70.10 Alcoholic hepatitis without ascites; I80.9 Phlebitis and thrombophlebitis of unspecified site; E83.42 Hypomagnesemia; N18.3 Chronic kidney disease, stage 3 (moderate); E78.5 Hyperlipidemia, unspecified; F17.210 Nicotine dependence, cigarettes, uncomplicated; Y90.7 Blood alcohol level of 200-239 mg/100 ml; I25.10 Atherosclerotic heart disease of native coronary artery without angina pectoris; Z95.5 Presence of coronary angioplasty implant and graft; Z81.1 Family history of alcohol abuse and dependence; Z86.718 Personal history of other venous thrombosis and embolism; I12.9 Hypertensive chronic kidney disease with stage 1 through stage 4 chronic kidney disease, or unspecified chronic kidney disease; D53.9 Nutritional anemia, unspecified; I71.4 Abdominal aortic aneurysm, without rupture; I87.091 Postthrombotic syndrome with other complications of right lower extremity
CPT/HCPCS: 36415; 70030-TC; 80307; 83690; 83735; 85025; 86580; 86592; 86705; 86803; 87340; 87806; G0480; Q0163